=== PATIENT | male | born 1995 | race Two or more races ===

== ENCOUNTER 2021-11-16 13:03 | Emergency (ER) | payer MEDICAID ==
[~2021-11-16] VITALS: Ht 172.7 cm; Wt 82.0 kg
[2021-11-16] MEDS ORDERED: KETOROLAC 30MG/ML VIAL IV STA (13:51)
[2021-11-16] MEDS ORDERED: SODIUM CHLORIDE 0.9% 1,000 ML IV ONE (14:00)
[2021-11-16 15:34] LABS: BASOPHILS % 0.7 % (0.0-2.0); EOSINOPHILS % 0.3 % (0.0-5.0); HEMATOCRIT. 46.4 % (42.0-52.0); HEMOGLOBIN. 15.5 g/dL (14.0-18.0); LYMPHOCYTES % 17.2 % (20.0-50.0); MEAN CORPUSCULAR HEMOGLOBIN 29.9 pg (28.0-32.0); MEAN CORPUSCULAR VOLUME 89.5 fL (80.0-94.0); MEAN PLATELET VOLUME 8.3 fl (7.4-10.4); MONOCYTES % 6.2 % (2.0-8.0); NEUTROPHILS % 75.6 % (40.0-76.0); PLATELET 208 x1000/uL (130-400); RED BLOOD CELL COUNT 5.18 mill/uL (4.7-6.1); RED CELL DISTRIBUTION WIDTH 13.1 % (11.6-14.6)
[2021-11-16 15:41] LABS: CHLORIDE 104 mEq/L (98-107)
[2021-11-16] MEDS ORDERED: IBUP-2030 MT (16:21)
[2021-11-16 16:23] LABS: CLARITY URINE CLEAR (CLEAR); COLOR URINE YELLOW (YELLOW); KETONES URINE 1+ (NEGATIVE); LEUKOCYTE ESTERASE URINE NEGATIVE (NEGATIVE); NITRITE URINE NEGATIVE (NEGATIVE); OCCULT BLOOD URINE NEGATIVE (NEGATIVE); PROTEIN URINE NEGATIVE (NEGATIVE); SPECIFIC GRAVITY URINE 1.011 (1.005-1.030)
[2021-11-16 17:02] VITALS: BP 126/74
== END 2021-11-16 17:04 | disposition home or self-care (01) ==
LOC: ER 13:44
DX: R51.9 Headache, unspecified (principal); R42 Dizziness and giddiness; Z20.822 Contact with and (suspected) exposure to COVID-19
CPT/HCPCS: 36415; 70450; 80053; 81003; 85025; 87426; 96361; 96374; 99284; C9803; J1885; J7030

== ENCOUNTER 2021-11-23 19:20 | Emergency (ER) | payer MEDICAID ==
[~2021-11-23] VITALS: Ht 172.7 cm; Wt 83.1 kg
[~2021-11-23 19:20] MED LIST: IBUP-2030 MT
[2021-11-23] MEDS ORDERED: METOCLOPRAMIDE HCL 10MG/2ML VIAL IV ONE (22:45)
[2021-11-23] MEDS ORDERED: KETOROLAC 15MG/ML VIAL IV ONE (22:45)
[2021-11-23] MEDS ORDERED: SODIUM CHLORIDE 0.9% 1,000 ML IV ONE (22:45)
[2021-11-23] MEDS ORDERED: DIPHENHYDRAMINE 50MG/ML VIAL IV ONE (22:45)
[2021-11-23 23:21] VITALS: BP 125/73
[2021-11-24] MEDS ORDERED: ACET-2708 MT (00:19)
== END 2021-11-24 00:38 | disposition home or self-care (01) ==
LOC: ER 19:20
DX: G43.909 Migraine, unspecified, not intractable, without status migrainosus (principal)
CPT/HCPCS: 96374; 96375; 99284; J1200; J1885; J2765; J7030

== ENCOUNTER 2022-03-15 14:18 | Emergency (ER) | payer MEDICAID ==
[~2022-03-15] VITALS: Ht 172.7 cm; Wt 84.0 kg
[~2022-03-15 14:18] MED LIST changes: +ACET-2708 MT
[2022-03-15 14:30] VITALS: BP 140/77
[2022-03-15] MEDS ORDERED: CHLO25TA68 MT (16:40)
[2022-03-15] MEDS ORDERED: CHLORPROMAZINE HCL 25 MG TABLET PO ONE (16:45)
== END 2022-03-15 16:57 | disposition home or self-care (01) ==
LOC: ER 15:02
DX: R06.6 Hiccough (principal)
CPT/HCPCS: 99283; Q0161